=== PATIENT | female | born 1985 | race Caucasian/White ===

== ENCOUNTER 2016-04-26 07:14 | Emergency (ER) | payer SELFPAY ==
[~2016-04-26] VITALS: Ht 167.6 cm; Wt 150.1 kg
[2016-04-26 07:25] VITALS: BP 157/85
== END 2016-04-26 08:11 | disposition left against medical advice (07) ==
LOC: ER 07:17
DX: F41.9 Anxiety disorder, unspecified (principal); Z53.21 Procedure and treatment not carried out due to patient leaving prior to being seen by health care provider